=== PATIENT | male | born 1975 | race Two or more races ===

== ENCOUNTER 2017-05-10 07:26 | Emergency (ER) | payer SELFPAY ==
[~2017-05-10] VITALS: Ht 182.9 cm; Wt 97.5 kg
[2017-05-10 07:30] VITALS: BP 120/78
[2017-05-10] MEDS ORDERED: Tetanus/Diptheria/Pertussis Vaccine 0.5ml Syr IM ONE (07:45)
[2017-05-10] MEDS ORDERED: KEFLEX500 MG ORAL (07:54)
[2017-05-10] MEDS ORDERED: BACTRIM DS TAB1 EAC1 ORAL (07:54)
[2017-05-10 08:07] VITALS: BP 120/78
--- NOTE | 2017-05-10 08:36 | Emergency Room Report ---
History of Present Illness General Chief Complaint: Skin Rash/Abscess Source: Patient Present Illness HPI Patient presents to the emergency department today complaining of a couple days of worsening left foot pain. Patient complains of redness and tenderness in the left foot. He states that he might have gotten bitten by an insect or spider. He states that area is tender and swollen and progressively becoming worse. He denies any fever nausea vomiting diarrhea chills. Denies any other trauma. No other complaints were noted. Denies any numbness or tingling.No other modifying factors. No other associated signs and symptoms. No other complaints were noted. Allergies: Coded Allergies: No Known Allergies (Unverified , 05/10/17) Patient History Past Medical History: none Past Surgical History: none Pertinent Family History: none Social History: Denies: alcohol use, drug use, smoking Reviewed Nursing Documentation: PMH: Agreed, PSxH: Agreed Nursing Documentation-PMH Past Medical History: No Stated History Review of Systems All Other Systems: negative except mentioned in HPI Physical Exam Vital Signs Date Time Temp Pulse Resp B/P Pulse Ox O2 Delivery O2 Flow Rate FiO2 05/10/17 07:30 98.1 71 16 120/78 99 Room Air Sp02 EP Interpretation: reviewed, normal General Appearance: normal inspection, well appearing, no apparent distress, alert Head: atraumatic Eyes: bilateral eye normal inspection ENT: normal ENT inspection, hearing grossly normal, normal voice Neck: normal inspection, full range of motion, supple, no bony tend Respiratory: normal inspection, lungs clear, normal breath sounds, no respiratory distress, no retraction, no wheezing Cardiovascular #1: regular rate, rhythm, no edema Gastrointestinal: normal inspection, normal bowel sounds, non tender, soft, no guarding, no hernia Genitourinary: no CVA tenderness Musculoskeletal: back normal, normal range of motion, swelling - left anterior foot Neurologic: normal inspection, alert, responsive, speech normal Psychiatric: normal inspection, judgement/insight normal, mood/affect normal Skin: rash - left anterior foot swelling Medical Decision Making Diagnostic Impression: Primary Impression: Cellulitis Qualified Codes: L03.116 - Cellulitis of left lower limb ER Course Patient presents emergency department today complaining of left lower extremity pain and swelling. Patient states that he develop acute onset of left foot pain. He is not sure these diabetic or has any medical problems. He does not recall his last tetanus shot. Differential diagnoses include cellulitis, DVT, abscess, allergic reaction, contact dermatitis just to name a few. Patient exam is consistent with cellulitis. There is no evidence of fluctuance and no evidence of abscess. I felt the patient would benefit from antibiotics. Patient's Accu-Chek was 150 patient states that he just had 2 donuts. Patient' s tetanus is updated. He was advised follow palpation for sugar and do his cholesterol checked.Patient is advised to follow up with primary doctor in 2-3 days and return the emergency room for any worsening symptoms and as needed. Last Vital Signs Date Time Temp Pulse Resp B/P Pulse Ox O2 Delivery O2 Flow Rate FiO2 05/10/17 08:07 98.0 71 16 120/78 99 Room Air Status: improved Disposition: HOME, SELF-CARE Condition: Stable Scripts Trimethoprim/Sulfamethoxazole 160/800* (BACTRIM DS TABLET*) 1 Each Tablet 1 TAB ORAL Q12H, #14 TAB 0 Refills Prov: CARMEN BARBA M.D. 05/10/17 Cephalexin* (KEFLEX*) 500 Mg Capsule 500 MG ORAL Q6H, #28 CAP 0 Refills Prov: CARMEN BARBA M.D. 05/10/17 Referrals: NOT CHOSEN KATHARINE/,REFERRING (PCP) Patient Instructions: Cellulitis CARMEN BARBA M.D. May 10, 2017 08:36
== END 2017-05-10 08:07 | disposition home or self-care (01) ==
LOC: EMR 07:55
DX: L03.116 Cellulitis of left lower limb (principal); Z23 Encounter for immunization
CPT/HCPCS: 82962; 90471; 90715; 96372; 99284